=== PATIENT | female | born 1930 | race American Indian/Alaskan Native ===

== ENCOUNTER 2017-06-20 04:27 | Emergency (ER) | payer MEDICARE, OTHER ==
[2017-06-20 04:35] VITALS: BMI 32.9
[2017-06-20 04:54] VITALS: TEMP 98.3
--- NOTE | 2017-06-20 06:07 | ED PDOC ---
Arrival/HPI - General Chief Complaint: ENT Problem Historian: Patient, Family - History of Present Illness Narrative History of Present Illness (Text): 06/20/17 06:06 86 yo F with PMH of Anemia, Rheumatoid Arthritis, Atrial Fibrillation not on anticoagulation, CAD, CHF, Dementia, HTN, Hypercholesterolemia presents complaining of nosebleed and clot. Patient blew her nose earlier tonight and immediately started bleeding. Patient's son (who is at bedside, providing history) instructed her to hold ice to her nose. Eventually, the bleeding stopped, but a large clot formed, and was protruding from her left nostril. Son tried to remove part of the clot, but then it started bleeding again, so he stopped. The bleeding again stopped on its own, but the large protruding clot remained in her left nostril. Patient denies pain, but is complaining of lightheadedness. She denies chest pain, shortness of breath, fever, chills, nausea, vomiting, diarrhea. 06/20/17 06:11 Time/Duration: 1-3 hours Symptom Onset: Gradual Symptom Course: Unchanged Past Medical History - Provider Review Nursing Documentation Reviewed: Yes - Travel History Have you recently traveled outside [place] w/in the past 3 mons?: No - Patient History Narrative Patient History: Anemia, Arthritis, Atrial Fibrillation, CAD, CHF, Dementia, HTN, Hypercholesterolemia - Infectious Disease Hx of Infectious Diseases: None - Tetanus Immunization Tetanus Immunization: Unknown - Reproductive Menopause: No Currently : No - Past Medical History Past Medical History: No Previous - Cardiac Hx Atrial Fibrillation: Yes Hx Congestive Heart Failure: Yes Hx Hypertension: Yes - Pulmonary Hx Respiratory Disorders: No - Neurological Hx Dementia: Yes - HEENT Hx HEENT Disorder: Yes Hx Cataracts: Yes Hx Glaucoma: Yes - Renal Hx Renal Disorder: No - Endocrine/Metabolic Hx Endocrine Disorders: No - Hematological/Oncological Hx Anemia: Yes - Integumentary Hx Dermatological Disorder: Yes Other/Comment: abdominal folds reddened and moist. pressure ulcer at right lower buttock/right upper thigh..PREVIOUS ENTRY, NOT CHECKED AT TRIAGE 12/17/16 - Musculoskeletal/Rheumatological Hx Arthritis: Yes - Gastrointestinal Hx Gastrointestinal Disorders: Yes Hx Constipation: Yes - Genitourinary/Gynecological Hx Incontinence: Yes Other/Comment: occasional incontinence - Psychiatric Hx Psychophysiologic Disorder: No Hx Substance Use: No - Surgical History Hx Coronary Stent: Yes - Anesthesia Hx Anesthesia: Yes Hx Anesthesia Reactions: No Hx Malignant Hyperthermia: No - Suicidal Assessment Feels Threatened In Home Enviroment: No Family/Social History - Physician Review Nursing Documentation Reviewed: Yes Family/Social History: Unknown Family HX Smoking Status: Never Smoked Hx Alcohol Use: No Hx Substance Use: No Allergies/Home Meds Allergies/Adverse Reactions: Allergies No Known Allergies Allergy (Verified 06/20/17 04:35) Review of Systems - Review of Systems Constitutional: Normal Eyes: Normal ENT: Epistaxis Respiratory: Normal Cardiovascular: Normal Gastrointestinal: Normal Genitourinary Female: Normal Musculoskeletal: Normal Skin: Normal Neurological: Normal Endocrine: Normal Hemo/Lymphatic: Normal Psychiatric: Normal Physical Exam Vital Signs Reviewed: Yes Vital Signs Temp Pulse Resp BP Pulse Ox 06/20/17 06:34 95 H 14 124/51 L 93 L 06/20/17 05:34 101 H 12 127/69 91 L 06/20/17 04:53 98.3 F 106 H 18 130/64 91 L Temperature: Afebrile Blood Pressure: Normal Pulse: Tachycardic Respiratory Rate: Normal Appearance: Positive for: Non-Toxic, Uncomfortable Pain Distress: None Mental Status: Positive for: Alert and Oriented X 3 - Systems Exam Head: Present: Atraumatic, Normocephalic Pupils: Present: PERRL Extroacular Muscles: Present: EOMI Conjunctiva: Present: Normal Mouth: Present: Moist Mucous Membranes, Other (Dry blood on tongue and in oropharynx) Nose (External): Present: Other (Large clot protruding from left nare; left nasal fullness) Neck: Present: Normal Range of Motion Respiratory/Chest: Present: Clear to Auscultation Cardiovascular: Present: Regular Rate and Rhythm, Normal S1, S2, Tachycardic Abdomen: Present: Normal Bowel Sounds. No: Tenderness, Distention Upper Extremity: Present: Normal Inspection. No: Cyanosis, Edema Lower Extremity: Present: Normal Inspection. No: Edema, CALF TENDERNESS Neurological: Present: GCS=15, CN II-XII Intact Skin: Present: Warm, Dry, Normal Color Psychiatric: Present: Alert, Oriented x 3, Normal Insight, Normal Concentration Medical Decision Making ED Course and Treatment: 06/20/17 06:22 Impression: Epistaxis, lightheadedness Plan: -- Labs: CBC, CMP, PT/PTT, type and screen -- Remove clot and place rhino-rocket -- Reassess and dispo 06/20/17 07:00 -- Hgb 9.1; VSS -- Removed large clot from left nare; patient continued to have scant bright red sputum -- Inserted 7.5cm Rapid Rhino in left nare - Lab Interpretations Lab Results: 06/20/17 05:15 06/20/17 05:15 Lab Results 06/20/17 05:15: Sodium 151 H, Potassium 4.4, Chloride 113 H, Carbon Dioxide 21, Anion Gap 22 H, BUN 30 H, Creatinine 2.0 H, Est GFR ( Amer) 28, Est GFR ( Non-Af Amer) 24, Random Glucose 173 H, Calcium 9.0, Total Bilirubin 0.8, AST 31 , ALT 45, Alkaline Phosphatase 175 H D, Total Protein 7.4, Albumin 3.6, Globulin 3.8, Albumin/Globulin Ratio 0.9 L 06/20/17 05:15: WBC 10.2, RBC 3.37 L, Hgb 9.1 L, Hct 31.2 L, MCV 92.6, MCH 27.0 , MCHC 29.2 L, RDW 17.8 H, Plt Count 210, MPV 11.0, Gran % 85.5 H, Lymph % (Auto ) 8.7 L, [place] % (Auto) 5.0, Eos % (Auto) 0.6 L, Baso % (Auto) 0.2, Gran # 8.74 H , Lymph # (Auto) 0.9 L, [place] # (Auto) 0.5, Eos # (Auto) 0.1, Baso # (Auto) 0.02 Disposition/Present on Arrival - Present on Arrival Any Indicators Present on Arrival: No History of DVT/PE: No History of Uncontrolled Diabetes: No Urinary Catheter: No History of Decub. Ulcer: No History Surgical Site Infection Following: None - Disposition Have Diagnosis and Disposition been Completed?: Yes Diagnosis: Epistaxis, Anemia Disposition: HOME/ ROUTINE Disposition Time: 07:02 Patient Plan: Discharge Condition: GUARDED Discharge Instructions (ExitCare): Nosebleeds (DC) Additional Instructions: -- Do NOT remove the nasal packing -- Continue to take the antibiotics (augmentin) twice daily until you see the ENT doctor -- Follow up with the ENT doctor within 2 days -- Follow up with your primary care doctor within 3-5 days -- Return to the ER for any new or worsening concerns Prescriptions: Amoxicillin/Clavulanate [Augmentin 500 MG-125 MG] 1 tab PO BID #14 tab Referrals: Jaguar Duran MD [Primary Care Provider] - Follow up with primary William Corral DO [Staff Provider] - Follow up with primary Forms: [employer] (Turkmen)
[2017-06-20 06:40] LABS: ALB/GLOB RATIO 0.9 (1.1-1.8); ALBUMIN 3.6 g/dL (3.0-4.8)
[2017-06-20 06:43] LABS: BASO # 0.02 K/mm3 (0.0-2.0); BASO % 0.2 % (0.0-3.0); EOS # 0.1 (0.0-0.7); EOS % 0.6 % (1.5-5.0); GRAN # 8.74 (1.4-6.5); GRAN % 85.5 % (50.0-68.0); HEMOGLOBIN 9.1 g/dL (12.0-16.0); LYMPH # 0.9 (1.2-3.4); LYMPH % 8.7 % (22.0-35.0); MEAN CELL VOLUME 92.6 fl (80.0-105.0); MEAN CORPUSCULAR HGB CONC 29.2 g/dl (31.0-37.0); MONO # 0.5 (0.1-0.6); RBC 3.37 10^6/uL (3.5-6.1); RED CELL DISTRIBUTION WIDTH 17.8 % (11.5-14.5); WHITE BLOOD COUNT 10.2 10^3/ul (4.5-11.0)
[2017-06-20 06:49] VITALS: BP 124/51; PULSE 95; RESP 14; O2SAT 93
[2017-06-20 07:18] LABS: INR 1.18 (0.93-1.08); PARTIAL THROMBOPLASTIN TIME 21.5 Seconds (25.1-36.5); PROTHROMBIN TIME 13.6 SECONDS (9.4-12.5)
== END 2017-06-20 09:42 | disposition home or self-care (01) ==
LOC: ED 04:27
DX: R04.0 Epistaxis (principal); D64.9 Anemia, unspecified; I48.91 Unspecified atrial fibrillation; I25.10 Atherosclerotic heart disease of native coronary artery without angina pectoris; I10 Essential (primary) hypertension; E78.00 Pure hypercholesterolemia, unspecified

== ENCOUNTER 2017-06-24 16:28 | Emergency (ER) | payer MEDICARE, OTHER ==
[2017-06-24 16:28] VITALS: BMI 32.9
[2017-06-24 17:00] VITALS: RESP 18
--- NOTE | 2017-06-24 17:52 | ED PDOC ---
Arrival/HPI - General Chief Complaint: ENT Problem Time Seen by Provider: 06/24/17 17:02 Historian: Patient - History of Present Illness Narrative History of Present Illness (Text): 06/24/17 19:12 An 86 year old female presents to the emergency department requesting removal of rhino rocket. Patient states rhino rocket was placed 4 days ago, states unable to f/u with ENT specialist because no elevator in facility and would have to go up 17 stairs. Reports she has been taking Augmentin as prescribed. Notes rhino rocket has been irritating her and feels like it's making her having trouble breathing. Patient denies any fever, chills, headache, dizziness , weakness or any other complaints at this time. Symptom Onset: Sudden Symptom Course: Unchanged Activities at Onset: Rest Context: Home Past Medical History - Provider Review Nursing Documentation Reviewed: Yes - Infectious Disease Hx of Infectious Diseases: None - Tetanus Immunization Tetanus Immunization: Unknown - Past Medical History Past Medical History: No Previous - Cardiac Hx Atrial Fibrillation: Yes Hx Congestive Heart Failure: Yes Hx Hypertension: Yes - Pulmonary Hx Respiratory Disorders: No - Neurological Hx Dementia: Yes - HEENT Hx HEENT Disorder: Yes Hx Cataracts: Yes Hx Glaucoma: Yes - Renal Hx Renal Disorder: No - Endocrine/Metabolic Hx Endocrine Disorders: No - Hematological/Oncological Hx Anemia: Yes - Integumentary Hx Dermatological Disorder: Yes - Musculoskeletal/Rheumatological Hx Arthritis: Yes - Gastrointestinal Hx Gastrointestinal Disorders: Yes Hx Constipation: Yes - Genitourinary/Gynecological Hx Incontinence: Yes Other/Comment: occasional incontinence - Psychiatric Hx Psychophysiologic Disorder: No Hx Substance Use: No - Surgical History Hx Coronary Stent: Yes - Anesthesia Hx Anesthesia: Yes Hx Anesthesia Reactions: No Hx Malignant Hyperthermia: No - Suicidal Assessment Feels Threatened In Home Enviroment: No Family/Social History - Physician Review Nursing Documentation Reviewed: Yes Family/Social History: No Known Family HX Smoking Status: Never Smoked Hx Alcohol Use: No Hx Substance Use: No Allergies/Home Meds Allergies/Adverse Reactions: Allergies No Known Allergies Allergy (Verified 06/20/17 04:35) Review of Systems - Physician Review All systems were reviewed & negative as marked: Yes - Review of Systems Constitutional: absent: Fevers, Other (chills; weakness) ENT: Other (rhino rocket removal, left nostril) Neurological: absent: Headache, Dizziness Physical Exam Vital Signs Reviewed: Yes Vital Signs Temp Pulse Resp BP Pulse Ox 06/24/17 18:03 79 18 105/74 96 06/24/17 16:59 97 F L 85 18 103/70 95 Temperature: Afebrile Blood Pressure: Normal Pulse: Regular Respiratory Rate: Normal Appearance: Positive for: Well-Appearing, Non-Toxic, Comfortable Pain Distress: None Mental Status: Positive for: Alert and Oriented X 3 - Systems Exam Head: Present: Atraumatic, Normocephalic Mouth: Present: Moist Mucous Membranes, Other (no signs of active bleeding.). No: Drooling, Trismus Nose (External): Present: Atraumatic Nose (Internal): Present: Other (rhino rocket left nostril; no active bleeding) Neck: Present: Normal Range of Motion Respiratory/Chest: Present: Clear to Auscultation, Good Air Exchange. No: Respiratory Distress, Accessory Muscle Use Cardiovascular: Present: Regular Rate and Rhythm, Normal S1, S2. No: Murmurs Skin: Present: Warm, Dry, Normal Color. No: Rashes Psychiatric: Present: Alert, Oriented x 3 Medical Decision Making ED Course and Treatment: 06/24/17 19:03 An 86 year old female requesting rhino rocket removal. rhino rocket has been in place for 4 days. will remove. Progress Notes: Removed rhino rocket, observed patient in emergency department. No more bleeding from left nostril. Advised to f/u ENT. Patient's son states patient has appointment with ENT in two weeks. Advised patient to f/u PMD, f/u ENT, return if new bleeding develops. advised continuing abx until completion. stressed importance of f/u Patient verbalizes understanding of discharge instructions and need for immediate followup. all aspects of this case were discussed the attending of record. Impression: History of epistaxis, removal of Rhino Rocket Continue antibiotics as prescribed Follow-up with the ENT specialist within the next 2 days Follow-up with primary care physician within the next 2 days Return immediately if symptoms worsen persist or if new concerning symptoms develop - Scribe Statement The provider has reviewed the documentation as recorded by the Narciso Bush Provider Scribe Attestation: All medical record entries made by the Narciso were at my direction and personally dictated by me. I have reviewed the chart and agree that the record accurately reflects my personal performance of the history, physical exam, medical decision making, and the department course for this patient. I have also personally directed, reviewed, and agree with the discharge instructions and disposition. Disposition/Present on Arrival - Present on Arrival Any Indicators Present on Arrival: No History of DVT/PE: No History of Uncontrolled Diabetes: No Urinary Catheter: No History of Decub. Ulcer: No History Surgical Site Infection Following: None - Disposition Have Diagnosis and Disposition been Completed?: Yes Diagnosis: Hx of epistaxis Disposition: HOME/ ROUTINE Disposition Time: 17:51 Patient Plan: Discharge Patient Problems: Current Active Problems Problem Status Onset Hx of epistaxis Acute Condition: GOOD Discharge Instructions (ExitCare): Nosebleeds Additional Instructions: Continue antibiotics as prescribed Follow-up with the primary care physician within the next 2 days Follow-up with the ENT specialist within the next 2 days Return immediately if symptoms worsen persist or if new concerning symptoms develop. Return immediately if nosebleed returns. Referrals: William Corral DO [Staff Provider] - Follow up with primary Kirby Angulo MD [Staff Provider] - Follow up with primary Forms: [employer] [place] (Polish)
[2017-06-25 03:32] VITALS: BP 110/70; PULSE 80; TEMP 98; O2SAT 98
== END 2017-06-24 18:30 | disposition home or self-care (01) ==
LOC: ED 16:28
DX: R04.0 Epistaxis (principal)